=== PATIENT | male | born 1950 | race Caucasian/White ===

== ENCOUNTER 2023-08-17 19:06 | Emergency (ER) | payer OTHER ==
[~2023-08-17] VITALS: Ht 177.8 cm; Wt 88.5 kg
[2023-08-17 19:41] VITALS: BP 138/88
[2023-08-17] MEDS ORDERED: Naprosyn500 MG PO (22:34)
== END 2023-08-17 22:30 | disposition home or self-care (01) ==
LOC: ER 19:06
DX: S51.012A Laceration without foreign body of left elbow, initial encounter (principal); S09.90XA Unspecified injury of head, initial encounter; G20.A1 Parkinson's disease without dyskinesia, without mention of fluctuations; F02.80 Dementia in other diseases classified elsewhere, unspecified severity, without behavioral disturbance, psychotic disturbance, mood disturbance, and anxiety; M25.551 Pain in right hip; W06.XXXA Fall from bed, initial encounter; Z91.81 History of falling
CPT/HCPCS: 12002; 70450; 73502; 96372; 99284-25; J1885